=== PATIENT | female | born 1980 | race Two or more races ===

== ENCOUNTER 2018-03-29 16:20 | Inpatient (IN) | payer OTHER ==
[2018-03-29] MEDS ORDERED: Ondansetron 4 MG/2 ML SDV IVPUSH PRN (18:37)
[2018-03-29] MEDS ORDERED: Nalbuphine 20 MG/1 ML Amp IVPUSH PRN (18:37)
[2018-03-29] MEDS ORDERED: Sodium Chloride 0.9% 10 ML Syringe FLUSH PRN (18:37)
[2018-03-29] MEDS ORDERED: Lidocaine 1% 50 ML MDV INJECT ONE (18:37)
[2018-03-29] MEDS ORDERED: Oxytocin/Lactated Ringers 10 UNIT/1,000 ML BAG IV SCH (18:45)
--- NOTE | 2018-03-29 18:49 | PCM.LDHP ---
L&D History of Present Illness - General Date of Service: 03/29/18 Admit Problem/Dx: Patient Status Order with Admit Dx/Problem 03/29/18 18:38 Patient Status [ADT] Routine Admission Diagnosis/Problem Admission Diagnosis/Problem Normal 03/29/18 18:41 38-0/7 week IUP, gross SROM, early labor Source of Information: Patient History Limitations: Reports: No Limitations - History of Present Illness Introduction:: Freddy is a 37-year-old 2 para 1001 Peruvian female who was admitted to labor and delivery with gross rupture membranes. She is 38-0/7 weeks gestational age by a last menstrual period starting 07/06/2017 and supported by ultrasounds done on 11/15/2017 and 12/27/2017. She is seen on a regular basis by Dr. Christopher. She reports a gush of fluid at approximately 12 noon today. She is continued to have leakage all afternoon especially with increased activity. She is emptied her bladder but continues to leak fluid. Clinical exam at this time showed gross rupture membranes, cervix is 2 cm, 70% effaced, mid position, -3 station, very soft, cephalic presentation, clear amniotic fluid noted. 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 Her first new visit was on 10/04/2017 at 12-6/7 weeks. Ultrasound dating supported last menstrual period dating as described above. She was seen on a regular basis throughout the . Her fundal height growth and vital signs were stable. Was from 146 pounds up to approximately 170 pounds for a 24 pound weight gain. Laboratory testing shows blood to be O+ with a negative antibody screen. First hemoglobin was 14.1 and platelets were 293,000. She is rubella immune. Hepatitis B surface antigen and HIV assays were negative. Second trimester hemoglobin was 12.2 g/dL. One-hour glucose tolerance test was normal at 150 mg/ dL. Group B strep screen was negative. Allergies: None Medications: vitamins daily Past medical history: 1. Vaginal delivery via vacuum extraction with first Past surgical history: Unremarkable Family history: Other secondary to an aneurysm of the brain. Also had COPD and asthma. Mother with history of hypertension and hypercholesterolemia. Brother is alive and well. Second Brother has asthma. Paternal grandmother with asthma and secondary to that. Paternal grandfathers demise on both sides unknown. Maternal grandmother at age 96 from old age. No anesthesia, bleeding, blood clots or problems noted in the family. Social history: Patient is , lives in [place]. Her name is Abraham. 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 She does not use any significant muscle but I'll call, drugs or tobacco. Review of systems: General patient feels fine and is not having any contractions as of yet. Skin: Negative Respiratory: Negative for infection symptoms or shortness of breath Cardiovascular: No chest pain or exercise intolerance Breasts: Changes associated with only. Patient plans to breast-feed GI: Negative : Changes associated with with increased fundal height Musculoskeletal: Occasional mild bipedal edema Neurological: Negative Physical exam: In general patient is well-developed well-nourished pleasant female stated age in no acute distress. Vital signs stable. Patient is afebrile Skin is warm dry without lesions. HEENT, neck and back within normal limits Lungs are clear with good breath sounds in all lung patton. Cardiovascular exam shows regular rate and rhythm without murmurs. Breast exam is deferred having been done at first visit and found to be normal. Abdomen is protuberant with fundal height consistent with 38 weeks gestational age. Cervical exam as above Extremities and neurological exam within normal limits. - Related Data Allergies/Adverse Reactions: Allergies Allergy/AdvReac Type Severity Reaction Status Date / Time No Known Allergies Allergy Verified 03/29/18 17:06 Home Medications: Home Meds Vits #93/Iron Fum/FA [ Formula Tablet] 03/29/18 [History] H&P Review of Systems - Review of Systems: Review Of Systems: See Below L&D Exam - Exam Exam: See Below - Vital Signs Vital Signs: Last Vital Signs Temp 35.8 C 03/29/18 17:06 Pulse 89 03/29/18 17:06 Resp 16 03/29/18 17:06 BP 113/64 03/29/18 17:06 Pulse Ox Weight: 79.379 kg Problem List Initiated/Reviewed/Updated: Yes Orders Last 24hrs: Active Orders 24 hr Category Date Time Status Patient Status [ADT] Routine ADT 03/29/18 18:38 Ordered Activity as Tolerated [RC] PFP Care 03/29/18 18:37 Ordered Communication Order [RC] ASDIRECTED Care 03/29/18 18:37 Ordered Heart Tones [RC] ASDIRECTED Care 03/29/18 18:39 Ordered Notify Provider [RC] PFP Care 03/29/18 18:37 Ordered Notify Provider [RC] PRN Care 03/29/18 18:37 Ordered Peripheral IV Care [RC] . DIRECTED Care 03/29/18 18:39 Ordered Pump Management, Intrathecal [RC] ASDIRECTED Care 03/29/18 18:39 Ordered Vital Signs [RC] PER UNIT ROUTINE Care 03/29/18 18:37 Ordered Regular Diet [DIET] Diet 03/29/18 Dinner Ordered CBC WITH AUTO DIFF [HEME] Stat Lab 03/29/18 18:37 Ordered Lactated Ringers [Ringers, Lactated] 1,000 ml Med 03/29/18 18:45 Ordered IV ASDIRECTED Lidocaine 1% [Xylocaine 1%] Med 03/29/18 18:37 Once 10 ml INJECT ONETIME ONE Nalbuphine [Nubain] Med 03/29/18 18:37 Ordered 10 mg IVPUSH Q2H PRN Ondansetron [Zofran] Med 03/29/18 18:37 Ordered 4 mg IVPUSH Q4H PRN Oxytocin/Lactated Ringers [Pitocin in LR 10 Units/1,000 Med 03/29/18 18:45 Ordered ML] 10 unit in 1,000 ml IV TITRATE Sodium Chloride 0.9% [Saline Flush] Med 03/29/18 18:37 Ordered 10 ml FLUSH ASDIRECTED PRN Electronic Heart Tones Ext w TOCO [WOMSER] Oth 03/29/18 18:37 Ordered Routine Electronic Heart Tones Internal [WOMSER] Per Unit Oth 03/29/18 18:37 Ordered Routine Peripheral IV Insertion Adult [OM.PC] Routine Oth 03/29/18 18:37 Ordered Resuscitation Status Routine Resus Stat 03/29/18 18:37 Ordered Assessment/Plan Comment:: Assessment: 1. 38-0/7 week intrauterine , gross rupture of membranes, early labor. 2. Group B strep screen negative 3. Risk factors for the include age of 37, difficult vacuum extraction delivery with last baby that weighed 6 lbs. 13 oz. 4. Patient plans to breast-feed 5. Patient desires epidural in labor. Plan: 1. Since patient has had ruptured membranes for the last 6 hours without significant contractions or labor would recommend Pitocin augmentation per protocol. This is discussed in detail with patient and her . They appear to understand and wish to proceed. She is understanding of the risks of standard prolonged rupture membranes as it relates to possibility of infection for her the baby. 2. Epidural when necessary for pain 3. Support breast-feeding decision 4. CBC 5. Rubella titer shows immunity therefore no MMR is warranted.
[2018-03-29] MEDS: Lactated Ringers 1,000 ML IV SCH (19:00)
[2018-03-30] MEDS ORDERED: ePHEDrine 50 MG/ML SDV IVPUSH PRN (01:15)
[2018-03-30] MEDS ORDERED: fentaNYL 100 MCG/2 ML SDV EPIDUR PRN (01:15)
[2018-03-30] MEDS ORDERED: diphenhydrAMINE 50 MG/ML SDV IVPUSH PRN (01:15)
[2018-03-30] MEDS ORDERED: Bupivacaine/fentaNYL/NS 100 ML Bag EPIDUR SCH (01:15)
[2018-03-30] MEDS: Lactated Ringers 1,000 ML IV SCH ×3 (01:19→05:57)
--- NOTE | 2018-03-30 01:55 | PCM.PREANE ---
Preanesthetic Assessment - Anesthesia/Transfusion/Family Hx Anesthesia History: Prior Anesthesia Without Reaction Family History of Anesthesia Reaction: No Transfusion History: No Prior Transfusion(s) - Review of Systems General: No Symptoms Pulmonary: No Symptoms Cardiovascular: No Symptoms Gastrointestinal: No Symptoms Neurological: No Symptoms Other: Reports: None - Physical Assessment Respiratory Rate: 16 Vital Signs: Last Vital Signs Temp 96.4 F 03/29/18 17:06 Pulse 89 03/29/18 17:06 Resp 16 03/29/18 17:06 BP 113/64 03/29/18 17:06 Pulse Ox Height: 5 ft 3 in Weight: 79.379 kg ASA Class: 2 Mental Status: Alert & Oriented x3 Airway Class: Mallampati = 1 Dentition: Reports: Normal Dentition Thyro-Mental Finger Breadths: 3 Mouth Opening Finger Breadths: 3 ROM/Head Extension: Full Lungs: Clear to Auscultation, Normal Respiratory Effort Cardiovascular: Regular Rate, Regular Rhythm - Lab Values: Laboratory Last Values WBC 12.40 K/mm3 (3.98-10.04) H 03/29/18 18:50 RBC 4.27 M/mm3 (3.98-5.22) 03/29/18 18:50 Hgb 12.5 gm/L (11.2-15.7) 03/29/18 18:50 Hct 38.1 % (34.1-44.9) 03/29/18 18:50 MCV 89.2 fl (79.4-94.8) 03/29/18 18:50 MCH 29.3 pg (25.6-32.2) 03/29/18 18:50 MCHC 32.8 g/dl (32.2-35.5) 03/29/18 18:50 RDW Std Deviation 49.7 fL (36.4-46.3) H 03/29/18 18:50 Plt Count 227 K/mm3 (182-369) 03/29/18 18:50 MPV 11.2 fl (9.4-12.3) 03/29/18 18:50 Neut % (Auto) 70.5 % (34.0-71.1) 03/29/18 18:50 Lymph % (Auto) 19.0 % (19.3-51.7) L 03/29/18 18:50 [place] % (Auto) 8.1 % (4.7-12.5) 03/29/18 18:50 Eos % (Auto) 1.2 (0.7-5.8) 03/29/18 18:50 Baso % (Auto) 0.2 % (0.1-1.2) 03/29/18 18:50 Neut # (Auto) 8.73 K/mm3 (1.56-6.13) H 03/29/18 18:50 Lymph # (Auto) 2.35 K/mm3 (1.18-3.74) 03/29/18 18:50 [place] # (Auto) 1.01 K/mm3 (0.24-0.36) H 03/29/18 18:50 Eos # (Auto) 0.15 K/mm3 (0.04-0.36) 03/29/18 18:50 Baso # (Auto) 0.03 K/mm3 (0.01-0.08) 03/29/18 18:50 Manual Slide Review Normal smear 03/29/18 18:50 - Allergies Allergies/Adverse Reactions: Allergies Allergy/AdvReac Type Severity Reaction Status Date / Time No Known Allergies Allergy Verified 03/29/18 17:06 - Blood Blood Available: No - Acknowledgements Anesthesia Type Planned: Epidural Pt an Appropriate Candidate for the Planned Anesthesia: Yes Alternatives and Risks of Anesthesia Discussed w Pt/Guardian: Yes Pt/Guardian Understands and Agrees with Anesthesia Plan: Yes PreAnesthesia Questionnaire Cardiovascular History: Reports: None Respiratory History: Reports: None Gastrointestinal History: Reports: GERD 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) Para: 1 - SUBSTANCE USE Smoking Status *Q: Former Smoker Tobacco Use Within Last Twelve Months: Cigarettes Second Hand Smoke Exposure: Yes Days Per Week of Alcohol Use: 0 Recreational Drug Use History: No - HOME MEDS Home Medications: Home Meds Vits #93/Iron Fum/FA [ Formula Tablet] 03/29/18 [History] - CURRENT (IN HOUSE) MEDS Current Meds: Current Medications Diphenhydramine HCl (Benadryl) 25 mg IVPUSH Q6H PRN PRN Reason: pruritis Ephedrine Sulfate (Ephedrine Sulfate) 5 mg IVPUSH ASDIRECTED PRN PRN Reason: Hypotension Fentanyl (Sublimaze) 100 mcg EPIDUR Q3H PRN PRN Reason: Pain Last Admin: 03/30/18 01:52 Dose: 100 mcg Fentanyl/Bupivacaine HCl (Fentanyl/Bupivacaine/Ns 2 Mcg-0.125% 100 Ml) 100 ml EPIDUR ASDIRECTED GERARDO Last Admin: 03/30/18 01:52 Dose: 100 ml Lactated Ringer's (Ringers, Lactated) 1,000 mls @ 100 mls/hr IV ASDIRECTED GERARDO Last Infusion: 03/30/18 00:54 Dose: 999 mls/hr Oxytocin/Lactated Ringer's (Pitocin In Lr 10 Units/1,000 Ml) 10 unit in 1,000 mls @ 12 mls/hr IV TITRATE GERARDO; Protocol Last Titration: 03/29/18 23:00 Dose: 10 munits/min, 60 mls/hr Nalbuphine HCl (Nubain) 10 mg IVPUSH Q2H PRN PRN Reason: Pain (moderate 4-6) Ondansetron HCl (Zofran) 4 mg IVPUSH Q4H PRN PRN Reason: Nausea/Vomiting Sodium Chloride (Saline Flush) 10 ml FLUSH ASDIRECTED PRN PRN Reason: Keep Vein Open Discontinued Medications Lidocaine HCl (Xylocaine 1%) 10 ml INJECT ONETIME ONE Stop: 03/29/18 18:38
[2018-03-30] MEDS ORDERED: Bupivacaine 0.25% 10 ML SDV ONE (04:00)
[2018-03-30] MEDS ORDERED: ePHEDrine 50 MG/ML SDV ONE (04:00)
--- NOTE | 2018-03-30 08:11 | PCM.SN ---
- Free Text/Narrative Note: Freddy Is a 37-year-old 2 now para 2002 [place] female who was admitted in early labor with spontaneous rupture membranes last evening. She is 38-0/7 weeks with an LEONARDO of 04/12/2018. Her labor progressed slowly at first but was augmented with Pitocin and then progressed rapidly to complete cervical dilation by approximately 0545 hrs. this morning. The patient became somewhat fatigued and was requesting intervention. Therapy including primary section, continued pushing or vacuum extraction assistance were discussed in detail including procedures, risks, benefits etc. She wished to proceed with vacuum extraction attempt as she had this before and had success. Vacuum extraction was done using the Silastic cup. Negative pressure was no greater than 650 mmHg. Patient pushed once and with that one push delivered a viable, matthew, female at 0746 hrs. on 03/30/2018. The baby had Apgars of 8 and 9. Baby's weight was 2980 grams ( 6 pounds, 9.1 ounces) and length was inches. Baby delivered in a direct occiput anterior position. Delivery the baby was placed on mom's abdomen, nose and mouth were bulb suctioned and cord was allowed to pulsate. With cessation of pulsation the cord was clamped 2 and was cut by the baby's father. Cord blood was obtained. Pitocin was given IV to facilitate increase in uterine tone and decrease likelihood of uterine bleeding. Epidural analgesia was used for labor and delivery. Patient had a second-degree perineal laceration. This was repaired in a routine fashion using 3-0 Monocryl. Epidural was adequate for anesthesia. The placenta delivered in a Dillon presentation, appeared intact and complete and was discarded per patient desire. Estimated blood loss was 200 mL. Patient plans to breast-feed. Condition: Good
[2018-03-30] MEDS ORDERED: Benzocaine/Menthol 20%-0.5% Spray 56 GM Canister TOP PRN (08:13)
[2018-03-30] MEDS ORDERED: Acetaminophen 325 MG Tab PO PRN (08:13)
[2018-03-30] MEDS ORDERED: Lanolin 100% Cream 7 GM Tube TOP PRN (08:13)
[2018-03-30] MEDS ORDERED: Witch Hazel Medicated Pads 100/Jar TOP PRN (08:13)
[2018-03-30] MEDS ORDERED: Docusate Sodium 100 MG Cap PO PRN (08:13)
[2018-03-30] MEDS ORDERED: Oxytocin/Lactated Ringers 10 UNIT/1,000 ML BAG IV SCH (08:45)
[2018-03-30] MEDS: Ibuprofen 600 MG Tab PO PRN ×2 (09:46→20:04)
[2018-03-31] MEDS: Ibuprofen 600 MG Tab PO PRN ×2 (04:03→08:21)
[2018-03-31] MEDS: Prenatal Multivitamin with Calcium/Folic Acid/Iron Tab PO SCH ×2 (08:20→10:24)
--- NOTE | 2018-03-31 09:18 | PCM48HPAN ---
Post Anesthesia Note - EVALUATION WITHIN 48HRS OF ANESTHETIC Vital Signs in Normal Range: Yes Patient Participated in Evaluation: Yes Respiratory Function Stable: Yes Airway Patent: Yes Cardiovascular Function Stable: Yes Hydration Status Stable: Yes Pain Control Satisfactory: Yes Nausea and Vomiting Control Satisfactory: Yes Mental Status Recovered: Yes
--- NOTE | 2018-03-31 10:29 | PCM.DCSUM1 ---
Discharge Summary - Hospital Course Free Text/Narrative:: Freddy Is a 37-year-old 2 now para 2002 Lao female who was admitted in early labor with spontaneous rupture membranes last evening. She is 38-0/7 weeks with an LEONARDO of 04/12/2018. Her labor progressed slowly at first but was augmented with Pitocin and then progressed rapidly to complete cervical dilation by approximately 0545 hrs. this morning. The patient became somewhat fatigued and was requesting intervention. Therapy including primary section, continued pushing or vacuum extraction assistance were discussed in detail including procedures, risks, benefits etc. She wished to proceed with vacuum extraction attempt as she had this before and had success. Vacuum extraction was done using the Silastic cup. Negative pressure was no greater than 650 mmHg. Patient pushed once and with that one push delivered a viable, matthew, female at 0746 hrs. on 03/30/2018. The baby had Apgars of 8 and 9. Baby's weight was 2980 grams ( 6 pounds, 9.1 ounces) and length was inches. Baby delivered in a direct occiput anterior position. Delivery the baby was placed on mom's abdomen, nose and mouth were bulb suctioned and cord was allowed to pulsate. With cessation of pulsation the cord was clamped 2 and was cut by the baby's father. Cord blood was obtained. Pitocin was given IV to facilitate increase in uterine tone and decrease likelihood of uterine bleeding. Epidural analgesia was used for labor and delivery. Patient had a second-degree perineal laceration. This was repaired in a routine fashion using 3-0 Monocryl. Epidural was adequate for anesthesia. The placenta delivered in a Dillon presentation, appeared intact and complete and was discarded per patient desire. Estimated blood loss was 200 mL. Patient plans to breast-feed. patient is done well. She is nursing without problems, has minimal lochia and is voiding well. She is ambulating without concerns. She is desiring to be discharged. - Discharge Data Discharge Date: 03/31/18 Discharge Disposition: Home, Self-Care 01 Condition: Good - Patient Instructions Diet: Regular Diet as Tolerated (Nursing diet with increased calories and calcium was recommended) Activity: As Tolerated (No intercourse tampons until bleeding resolves.) Driving: May Drive Today Showering/Bathing: May Shower (May take a bath) Notify Provider of: Fever, Increased Pain, Swelling and Redness, Nausea and/or Vomiting - Discharge Plan Prescriptions/Med Rec: Acetaminophen [Mapap] 500 mg PO Q6HR PRN #30 capsule PRN Reason: Pain Home Medications: Home Meds Vits #93/Iron Fum/FA [ Formula Tablet] 03/29/18 [History] Acetaminophen [Mapap] 500 mg PO Q6HR PRN #30 capsule 03/31/18 [Rx] Ibuprofen [IJD: Ibuprofen] 600 mg PO Q4H PRN tablet 03/31/18 [Rx] Patient Handouts: Home Care Instructions for Mom Referrals: Stefany Christopher MD [Primary Care Provider] - (Return to clinic Dr. Christopher-2- 4 weeks.) - Discharge Summary/Plan Comment DC Time >30 min.: No Discharge Summary/Plan Comment: Discharge instructions: 1. Discharge home 2. Diet, activity and follow-up discussed with patient. Recommend nursing diet with increased calories and calcium. 3. Precautions given concern increased pain, bleeding, temperature, signs/ symptoms of DVT/PE. 4. Medications per home medication was printed, discussed with and given to the patient. 5. Return to clinic-Dr. Christopher[facility] in 2-4 weeks. Diagnosis: Term -delivered Condition: Good - Patient Data Vitals - Most Recent: Last Vital Signs Temp 36.6 C 03/31/18 09:54 Pulse 99 03/31/18 09:54 Resp 17 03/31/18 09:54 BP 113/61 03/31/18 09:54 Pulse Ox 98 03/31/18 09:54 Weight - Most Recent: 79.379 kg I&O - Last 24 hours: Intake & Output 03/30/18 03/31/18 03/31/18 22:59 06:59 14:59 Intake Total 0 Balance 0 Med Orders - Current: Current Medications Acetaminophen (Tylenol) 650 mg PO Q4H PRN PRN Reason: mild pain or fever Benzocaine/Menthol (Dermoplast Pain Relief [place]) 0 gm TOP ASDIRECTED PRN PRN Reason: Perineal Comfort Measure Last Admin: 03/30/18 08:56 Dose: 1 applic Docusate Sodium (Colace) 100 mg PO BID PRN PRN Reason: Constipation Emollient Ointment (Lansinoh Hpa) 0 gm TOP ASDIRECTED PRN PRN Reason: Sore Nipples Last Admin: 03/30/18 20:04 Dose: 1 tube Oxytocin/Lactated Ringer's (Pitocin In Lr 10 Units/1,000 Ml) 10 unit in 1,000 mls @ 500 mls/hr IV TITRATE GERARDO; Protocol Last Admin: 03/30/18 08:45 Dose: 500 ml/hr, 500 mls/hr Ibuprofen (Motrin) 600 mg PO Q4H PRN PRN Reason: Mild pain or fever Last Admin: 03/31/18 08:21 Dose: 600 mg Prenat Multivit/[place]/Iron/Folic Ac ( Plus Iron) 1 each PO DAILY GERARDO Last Admin: 03/31/18 10:24 Dose: Not Given Enrico Lorenzana (Tucks) 1 pad TOP ASDIRECTED PRN PRN Reason: Hemorrhoid pain Last Admin: 03/30/18 08:57 Dose: 1 applic Discontinued Medications Diphenhydramine HCl (Benadryl) 25 mg IVPUSH Q6H PRN PRN Reason: pruritis Ephedrine Sulfate (Ephedrine Sulfate) 5 mg IVPUSH ASDIRECTED PRN PRN Reason: Hypotension Fentanyl (Sublimaze) 100 mcg EPIDUR Q3H PRN PRN Reason: Pain Last Admin: 03/30/18 01:52 Dose: 100 mcg Fentanyl/Bupivacaine HCl (Fentanyl/Bupivacaine/Ns 2 Mcg-0.125% 100 Ml) 100 ml EPIDUR ASDIRECTED GERARDO Last Admin: 03/30/18 01:52 Dose: 100 ml Lactated Ringer's (Ringers, Lactated) 1,000 mls @ 100 mls/hr IV ASDIRECTED GERARDO Last Admin: 03/30/18 05:57 Dose: 100 mls/hr Oxytocin/Lactated Ringer's (Pitocin In Lr 10 Units/1,000 Ml) 10 unit in 1,000 mls @ 12 mls/hr IV TITRATE GERARDO; Protocol Last Titration: 03/30/18 07:46 Dose: 0 munits/min, 0 mls/hr Lidocaine HCl (Xylocaine 1%) 10 ml INJECT ONETIME ONE Stop: 03/29/18 18:38 Last Admin: 03/30/18 08:09 Dose: Not Given Nalbuphine HCl (Nubain) 10 mg IVPUSH Q2H PRN PRN Reason: Pain (moderate 4-6) Ondansetron HCl (Zofran) 4 mg IVPUSH Q4H PRN PRN Reason: Nausea/Vomiting Sodium Chloride (Saline Flush) 10 ml FLUSH ASDIRECTED PRN PRN Reason: Keep Vein Open
== END 2018-03-31 10:45 | disposition home or self-care (01) | DRG 775 ==
LOC: JD.OBCHECK 16:20 → JD.OB 16:20 → JD.OBCHECK 18:37 → JD.OB 18:38 → OBSVTOIN 03-30 07:46 → JD.OB 03-30 07:47
PROVIDERS: ADMIT Obstetrics & Gynecology; ATTEND Obstetrics & Gynecology
PROC: 10D07Z6 Extraction of Products of Conception, Vacuum, Via Natural or Artificial Opening (ICD-10-PCS; principal; 2018-03-30)
PROC: 0KQM0ZZ Repair Perineum Muscle, Open Approach (ICD-10-PCS; 2018-03-30)
PROC: 6A550ZT Pheresis of Cord Blood Stem Cells, Single (ICD-10-PCS; 2018-03-30)
PROC: 00HU33Z Insertion of Infusion Device into Spinal Canal, Percutaneous Approach (ICD-10-PCS; 2018-03-30)
PROC: 3E0R3BZ Introduction of Anesthetic Agent into Spinal Canal, Percutaneous Approach (ICD-10-PCS; 2018-03-30)
DX: O75.81 Maternal exhaustion complicating labor and delivery (principal); O70.1 Second degree perineal laceration during delivery; Z3A.38 38 weeks gestation of pregnancy; Z37.0 Single live birth
CPT/HCPCS: 01967; 36415; 51702; 59025; 59300; 59409; 85025; A9270-GY; J2590; J3010; J7120